=== PATIENT | male | born 1965 | race Caucasian/White ===

== ENCOUNTER 2022-11-25 13:18 | Inpatient (IN) | payer OTHER, MEDICAID ==
[~2022-11-25] VITALS: Ht 188 cm; Wt 79.4 kg
[2022-11-25 13:33] VITALS: BP_SYST 104
[2022-11-25 15:23] LABS: BASOPHILS % (AUTO) 0.4 % (0.0-2.0); EOSINOPHILS % (AUTO) 0.3 % (0.0-4.0); HEMOGLOBIN 7.6 g/dL (14.0-18.0); LYMPHOCYTES # (AUTO) 3.8 K/uL (1.0-5.5); LYMPHOCYTES % (AUTO) 37.2 % (20.5-51.5); MEAN CORPUSCULAR HEMOGLOBIN 27 pg (27-31); MEAN CORPUSCULAR HGB CONC 33 % (32-36); MEAN CORPUSCULAR VOLUME 82 fL (79.0-98.0); MONOCYTES # (AUTO) 0.9 K/uL (0.0-1.0); MONOCYTES % (AUTO) 9.1 % (1.7-9.3); NEUTROPHILS # (AUTO) 5.4 K/uL (1.8-7.7); PLATELET COUNT (AUTO) 391 K/uL (130-430); RED BLOOD CELL COUNT(AUTO) 2.81 MIL/uL (4.2-6.2); WHITE BLOOD COUNT (AUTO) 10.2 K/uL (4.8-10.8)
[2022-11-25 15:25] LABS: ANION GAP 6 (5-15); CALCIUM 9.2 mg/dL (8.4-11.0); CHLORIDE 105 mmol/L (98-107); GLUCOSE 102 mg/dL (70-99); UREA NITROGEN, BLOOD 37 mg/dL (8-21)
[2022-11-25 15:37] LABS: ALANINE AMINOTRANSFERASE 27 U/L (12-78); ALBUMIN 1.3 g/dL (3.4-4.8); ASPARTATE AMINOTRANSFERASE 37 U/L (10-37); TOTAL BILIRUBIN 0.3 mg/dL (0.0-1.0)
[2022-11-25 15:39] LABS: GFR AFRICAN AMERICAN 57 mL/min (>90)
[2022-11-25] MEDS ORDERED: NACL 0.9% 1,000 ML IV ONE (18:45)
[2022-11-25] MEDS ORDERED: ALBUMIN HUMAN 25% 100 ML IV ONE (20:15)
[2022-11-25 22:00] VITALS: BP_SYST 94
[2022-11-25] MEDS ORDERED: MAGNESIUM SULFATE 50 ML IV PRN (22:30)
[2022-11-25] MEDS ORDERED: MORPHINE 2 MG/ML INJ. SYRINGE IVP PRN ×2 (22:30)
[2022-11-25] MEDS ORDERED: POTASSIUM CHLORIDE 20 MEQ TAB.PRT.SR PO PRN (22:30)
[2022-11-25] MEDS ORDERED: ZOLPIDEM TARTRATE 5 MG TABLET PO PRN (22:30)
[2022-11-25] MEDS ORDERED: MUPIROCIN 2% TOPICAL OINTMENT 22 GM NS PRN (22:30)
[2022-11-25] MEDS ORDERED: DOCUSATE SODIUM 100 MG CAPSULE PO PRN (22:30)
[2022-11-25] MEDS ORDERED: ONDANSETRON HCL 4 MG/2 ML VIAL IVP PRN (22:30)
[2022-11-25] MEDS ORDERED: NALOXONE HCL 0.4 MG/ML AMP (NARCAN) IVP PRN ×2 (22:30)
[2022-11-25] MEDS: NACL 0.9% 1,000 ML IV SCH (22:59)
[2022-11-25 23:20] VITALS: BP_SYST 89
[2022-11-25 23:21] VITALS: BP_SYST 90
[2022-11-25 23:25] VITALS: BP_SYST 99
[2022-11-26] VITALS (15 sets, daily range): BP systolic 79–108
[2022-11-26] MEDS ORDERED: NACL 0.9% 1,000 ML IV ONE (00:30)
[2022-11-26 02:36] LABS: BASOPHILS % (AUTO) 0.4 % (0.0-2.0); EOSINOPHILS # (AUTO) 0.1 K/uL (0.0-0.4); EOSINOPHILS % (AUTO) 0.8 % (0.0-4.0); HEMATOCRIT 22.4 % (36-54); HEMOGLOBIN 7.2 g/dL (14.0-18.0); LYMPHOCYTES # (AUTO) 3.3 K/uL (1.0-5.5); LYMPHOCYTES % (AUTO) 39.7 % (20.5-51.5); MEAN CORPUSCULAR HEMOGLOBIN 27 pg (27-31); MEAN CORPUSCULAR HGB CONC 32 % (32-36); MEAN CORPUSCULAR VOLUME 83 fL (79.0-98.0); MONOCYTES # (AUTO) 0.8 K/uL (0.0-1.0); MONOCYTES % (AUTO) 9.6 % (1.7-9.3); NEUTROPHILS # (AUTO) 4.1 K/uL (1.8-7.7); NEUTROPHILS % (AUTO) 49.5 % (40.0-70.0); PLATELET COUNT (AUTO) 321 K/uL (130-430); RED BLOOD CELL COUNT(AUTO) 2.71 MIL/uL (4.2-6.2); RED CELL DISTRIBUTION WIDTH 16.3 % (9.0-15.0); WHITE BLOOD COUNT (AUTO) 8.2 K/uL (4.8-10.8)
[2022-11-26 06:06] LABS: BILIRUBIN,URINE NEGATIVE (NEGATIVE); BLOOD, URINE 3+ (NEGATIVE); COLOR,URINE YELLOW (YELLOW); GLUCOSE,URINE NEGATIVE (NEGATIVE); KETONES,URINE NEGATIVE (NEGATIVE); LEUKOCYTE ESTERASE ,URINE 3+ (NEGATIVE); NITRITE, URINE NEGATIVE (NEGATIVE); PROTEIN URINE 1+ (NEGATIVE); UROBILINOGEN,URINE 0.2 (0.2-1.0)
[2022-11-26 06:09] LABS: CLARITY/URINE CLOUDY (CLEAR)
[2022-11-26 06:22] LABS: BACTERIA,URINE MANY /HPF (None Seen); WBC,URINE >100 /HPF (0-3)
[2022-11-26 08:18] LABS: BASOPHILS % (AUTO) 0.5 % (0.0-2.0); EOSINOPHILS # (AUTO) 0.1 K/uL (0.0-0.4); EOSINOPHILS % (AUTO) 0.8 % (0.0-4.0); HEMATOCRIT 25.6 % (36-54); HEMOGLOBIN 8.1 g/dL (14.0-18.0); LYMPHOCYTES # (AUTO) 3.3 K/uL (1.0-5.5); LYMPHOCYTES % (AUTO) 37.6 % (20.5-51.5); MEAN CORPUSCULAR HEMOGLOBIN 26 pg (27-31); MEAN CORPUSCULAR HGB CONC 32 % (32-36); MEAN CORPUSCULAR VOLUME 83 fL (79.0-98.0); MONOCYTES # (AUTO) 0.9 K/uL (0.0-1.0); MONOCYTES % (AUTO) 10.8 % (1.7-9.3); NEUTROPHILS # (AUTO) 4.4 K/uL (1.8-7.7); NEUTROPHILS % (AUTO) 50.3 % (40.0-70.0); PLATELET COUNT (AUTO) 319 K/uL (130-430); WHITE BLOOD COUNT (AUTO) 8.7 K/uL (4.8-10.8)
[2022-11-26] MEDS: NACL 0.9% 1,000 ML IV SCH ×2 (08:30→18:17)
[2022-11-26 08:42] LABS: CALCIUM 8.7 mg/dL (8.4-11.0); CREATININE 1.28 mg/dL (0.55-1.30)
[2022-11-26] MEDS ORDERED: PANTOPRAZOLE SODIUM 40 MG/VIAL (PROTONIX) IVP ONE (09:15)
[2022-11-26] MEDS ORDERED: cefTRIAXone 1 GM in D5W 50 ML IV SCH (09:15)
[2022-11-26 09:28] LABS: TOTAL IRON BIND. CAPACITY 99 ug/dL (250-450)
[2022-11-26] MEDS: cefTRIAXone 1 GM in D5W 50 ML IV SCH (11:22)
[2022-11-26] MEDS ORDERED: ARIP10TA54 PO (13:21)
[2022-11-26] MEDS ORDERED: DARU800T PO (13:21)
[2022-11-26] MEDS ORDERED: DOXA1TAB2 PO (13:21)
[2022-11-26] MEDS ORDERED: DOCU-144 PO (13:21)
[2022-11-26] MEDS ORDERED: BACL10TA PO (13:21)
[2022-11-26] MEDS ORDERED: FOLI-134 (13:21)
[2022-11-26] MEDS ORDERED: ESCI10TA PO (13:21)
[2022-11-26] MEDS ORDERED: ACET325T53 PO (13:21)
[2022-11-26] MEDS ORDERED: SENN8.6T19 PO (13:21)
[2022-11-26] MEDS ORDERED: RITO100T PO (13:21)
[2022-11-26] MEDS ORDERED: MOM PO (13:21)
[2022-11-26] MEDS ORDERED: LEVE500T99 PO (13:21)
[2022-11-26] MEDS ORDERED: METO-442 PO (13:21)
[2022-11-26] MEDS ORDERED: FAMO20TA8 PO (13:21)
[2022-11-26] MEDS ORDERED: TOP25 PO (13:21)
[2022-11-26] MEDS ORDERED: ASCO500T20 PO (13:21)
[2022-11-26] MEDS ORDERED: MULT-1117 PO (13:21)
[2022-11-26] MEDS ORDERED: RALT400T PO (13:21)
[2022-11-26] MEDS ORDERED: DOXA4TAB2 PO (13:52)
[2022-11-26] MEDS ORDERED: MELO-89 PO (13:52)
[2022-11-26] MEDS ORDERED: BISA10SU61 RC (13:52)
[2022-11-26] MEDS: PANTOPRAZOLE SODIUM 40 MG/VIAL (PROTONIX) IVP SCH (20:59)
[2022-11-27 00:48] VITALS: BP_SYST 110
[2022-11-27] MEDS: NACL 0.9% 1,000 ML IV SCH ×2 (04:43→23:53)
[2022-11-27 07:11] LABS: BASOPHILS % (AUTO) 0.3 % (0.0-2.0); EOSINOPHILS # (AUTO) 0.1 K/uL (0.0-0.4); EOSINOPHILS % (AUTO) 0.8 % (0.0-4.0); HEMATOCRIT 26.9 % (36-54); HEMOGLOBIN 8.7 g/dL (14.0-18.0); LYMPHOCYTES # (AUTO) 2.7 K/uL (1.0-5.5); LYMPHOCYTES % (AUTO) 33.5 % (20.5-51.5); MEAN CORPUSCULAR HEMOGLOBIN 26 pg (27-31); MEAN CORPUSCULAR HGB CONC 32 % (32-36); MEAN CORPUSCULAR VOLUME 82 fL (79.0-98.0); MONOCYTES # (AUTO) 0.8 K/uL (0.0-1.0); MONOCYTES % (AUTO) 9.7 % (1.7-9.3); NEUTROPHILS # (AUTO) 4.4 K/uL (1.8-7.7); NEUTROPHILS % (AUTO) 55.7 % (40.0-70.0); PLATELET COUNT (AUTO) 321 K/uL (130-430); RED BLOOD CELL COUNT(AUTO) 3.28 MIL/uL (4.2-6.2); RED CELL DISTRIBUTION WIDTH 17.1 % (9.0-15.0); WHITE BLOOD COUNT (AUTO) 7.9 K/uL (4.8-10.8)
[2022-11-27 07:17] LABS: CALCIUM 8.6 mg/dL (8.4-11.0); CREATININE 1.16 mg/dL (0.55-1.30)
[2022-11-27 08:00] VITALS: BP_SYST 106
[2022-11-27] MEDS: PANTOPRAZOLE SODIUM 40 MG/VIAL (PROTONIX) IVP SCH ×2 (10:13→20:48)
[2022-11-27] MEDS: cefTRIAXone 1 GM in D5W 50 ML IV SCH (10:14)
[2022-11-27 17:07] VITALS: BP_SYST 107
[2022-11-27 20:00] VITALS: BP_SYST 96
[2022-11-28 00:46] VITALS: BP_SYST 110
[2022-11-28 06:58] LABS: BASOPHILS % (AUTO) 0.4 % (0.0-2.0); EOSINOPHILS # (AUTO) 0.1 K/uL (0.0-0.4); EOSINOPHILS % (AUTO) 0.8 % (0.0-4.0); HEMATOCRIT 25.4 % (36-54); HEMOGLOBIN 8.2 g/dL (14.0-18.0); LYMPHOCYTES # (AUTO) 2.9 K/uL (1.0-5.5); LYMPHOCYTES % (AUTO) 35.8 % (20.5-51.5); MEAN CORPUSCULAR HEMOGLOBIN 27 pg (27-31); MEAN CORPUSCULAR HGB CONC 32 % (32-36); MEAN CORPUSCULAR VOLUME 83 fL (79.0-98.0); MONOCYTES # (AUTO) 0.8 K/uL (0.0-1.0); MONOCYTES % (AUTO) 9.9 % (1.7-9.3); NEUTROPHILS # (AUTO) 4.2 K/uL (1.8-7.7); NEUTROPHILS % (AUTO) 53.1 % (40.0-70.0); PLATELET COUNT (AUTO) 314 K/uL (130-430); RED BLOOD CELL COUNT(AUTO) 3.08 MIL/uL (4.2-6.2); RED CELL DISTRIBUTION WIDTH 16.8 % (9.0-15.0)
[2022-11-28 07:06] LABS: FOLATE (FOLIC ACID) >20.0 ng/mL (>3.0)
[2022-11-28 07:06] LABS: FOLATE (FOLIC ACID) >20.0 ng/mL (>3.0)
[2022-11-28 07:16] LABS: CALCIUM 8.5 mg/dL (8.4-11.0); CREATININE 1.2 mg/dL (0.55-1.30)
[2022-11-28 08:06] LABS: FERRITIN 200 ng/mL (30-400)
[2022-11-28 08:06] LABS: FERRITIN 254 ng/mL (30-400)
[2022-11-28 08:11] VITALS: BP_SYST 121
[2022-11-28] MEDS: PANTOPRAZOLE SODIUM 40 MG/VIAL (PROTONIX) IVP SCH ×2 (11:46→20:11)
[2022-11-28] MEDS: cefTRIAXone 1 GM in D5W 50 ML IV SCH (11:47)
[2022-11-28] MEDS: NACL 0.9% 1,000 ML IV SCH ×2 (11:47→20:12)
[2022-11-28 12:00] VITALS: BP_SYST 119
[2022-11-28 16:29] VITALS: BP_SYST 120
[2022-11-28 20:00] VITALS: BP_SYST 114
[2022-11-29 00:24] VITALS: BP_SYST 118
[2022-11-29 06:21] LABS: BASOPHILS % (AUTO) 0.4 % (0.0-2.0); EOSINOPHILS # (AUTO) 0.1 K/uL (0.0-0.4); EOSINOPHILS % (AUTO) 0.7 % (0.0-4.0); HEMATOCRIT 25.6 % (36-54); HEMOGLOBIN 8.2 g/dL (14.0-18.0); LYMPHOCYTES # (AUTO) 3.6 K/uL (1.0-5.5); LYMPHOCYTES % (AUTO) 40.4 % (20.5-51.5); MEAN CORPUSCULAR HEMOGLOBIN 26 pg (27-31); MEAN CORPUSCULAR HGB CONC 32 % (32-36); MEAN CORPUSCULAR VOLUME 82 fL (79.0-98.0); MONOCYTES % (AUTO) 10.8 % (1.7-9.3); NEUTROPHILS # (AUTO) 4.3 K/uL (1.8-7.7); NEUTROPHILS % (AUTO) 47.7 % (40.0-70.0); PLATELET COUNT (AUTO) 283 K/uL (130-430); RED BLOOD CELL COUNT(AUTO) 3.12 MIL/uL (4.2-6.2); WHITE BLOOD COUNT (AUTO) 8.9 K/uL (4.8-10.8)
[2022-11-29 06:56] LABS: CALCIUM 8.5 mg/dL (8.4-11.0); CREATININE 1.22 mg/dL (0.55-1.30)
[2022-11-29] MEDS: NACL 0.9% 1,000 ML IV SCH ×2 (07:15→08:35)
[2022-11-29] MEDS: PANTOPRAZOLE SODIUM 40 MG/VIAL (PROTONIX) IVP SCH ×2 (08:29→21:33)
[2022-11-29 08:30] VITALS: BP_SYST 119
[2022-11-29 11:29] VITALS: BP_SYST 104
[2022-11-29] MEDS: cefTRIAXone 1 GM in D5W 50 ML IV SCH (11:54)
[2022-11-29 15:56] VITALS: BP_SYST 113
[2022-11-29 20:00] VITALS: BP_SYST 123
[2022-11-30] VITALS: BP_SYST 130
[2022-11-30 00:10] VITALS: BP_SYST 134
[2022-11-30] MEDS: NACL 0.9% 1,000 ML IV SCH ×3 (02:43→15:56)
[2022-11-30] MEDS ORDERED: DEXTROSE 50% JECT 50 ML DISP.SYRIN IVP SCH (03:15)
[2022-11-30] MEDS: D5NS 1,000 ML IV SCH ×2 (03:17→15:59)
[2022-11-30 07:07] LABS: BASOPHILS % (AUTO) 0.1 % (0.0-2.0); EOSINOPHILS % (AUTO) 0.1 % (0.0-4.0); HEMATOCRIT 26.2 % (36-54); HEMOGLOBIN 8.4 g/dL (14.0-18.0); LYMPHOCYTES # (AUTO) 2.8 K/uL (1.0-5.5); LYMPHOCYTES % (AUTO) 32.9 % (20.5-51.5); MEAN CORPUSCULAR HEMOGLOBIN 26 pg (27-31); MEAN CORPUSCULAR HGB CONC 32 % (32-36); MEAN CORPUSCULAR VOLUME 81 fL (79.0-98.0); MONOCYTES # (AUTO) 0.7 K/uL (0.0-1.0); MONOCYTES % (AUTO) 8.4 % (1.7-9.3); NEUTROPHILS % (AUTO) 58.5 % (40.0-70.0); PLATELET COUNT (AUTO) 235 K/uL (130-430); RED BLOOD CELL COUNT(AUTO) 3.22 MIL/uL (4.2-6.2); RED CELL DISTRIBUTION WIDTH 17.1 % (9.0-15.0); WHITE BLOOD COUNT (AUTO) 8.5 K/uL (4.8-10.8)
[2022-11-30] MEDS ORDERED: MEPERIDINE HCL/PF 25 MG/ML DISP.SYRIN ONE (07:32)
[2022-11-30] MEDS ORDERED: MIDAZOLAM HCL 5 MG/5 ML VIAL ONE (07:33)
[2022-11-30 07:53] LABS: INR 1.2 (0.80-1.20); PROTHROMBIN TIME 12.6 SECS (9.5-12.5)
[2022-11-30 08:06] LABS: CREATININE 1.29 mg/dL (0.55-1.30)
[2022-11-30 08:20] VITALS: BP_SYST 126
[2022-11-30] MEDS: PANTOPRAZOLE SODIUM 40 MG/VIAL (PROTONIX) IVP SCH ×2 (08:20→20:50)
[2022-11-30 11:31] VITALS: BP_SYST 132
[2022-11-30] MEDS: cefTRIAXone 1 GM in D5W 50 ML IV SCH (11:37)
[2022-11-30 15:27] VITALS: BP_SYST 128
[2022-11-30 20:00] VITALS: BP_SYST 148
[2022-11-30] MEDS: ACETAMINOPHEN 325 MG TABLET PO PRN (20:53)
[2022-12-01 00:34] VITALS: BP_SYST 126
[2022-12-01] MEDS: LORazepam 2 MG/ML VIAL IVP PRN ×2 (01:41→17:29)
[2022-12-01] MEDS: NACL 0.9% 1,000 ML IV SCH (01:43)
[2022-12-01] MEDS: D5NS 1,000 ML IV SCH ×2 (05:09→18:12)
[2022-12-01] MEDS: PANTOPRAZOLE SODIUM 40 MG/VIAL (PROTONIX) IVP SCH ×2 (08:56→20:53)
[2022-12-01 09:00] VITALS: BP_SYST 137
[2022-12-01] MEDS: cefTRIAXone 1 GM in D5W 50 ML IV SCH (11:24)
[2022-12-01 11:35] VITALS: BP_SYST 150
[2022-12-01 15:28] VITALS: BP_SYST 125
[2022-12-01] MEDS: ACETAMINOPHEN 325 MG TABLET PO PRN (16:32)
[2022-12-01] MEDS ORDERED: clonazePAM 0.5 MG TABLET PO ONE (19:45)
[2022-12-01 21:01] VITALS: BP_SYST 108
[2022-12-02] VITALS: BP_SYST 116
[2022-12-02] MEDS: ACETAMINOPHEN 325 MG TABLET PO PRN ×2 (01:09→14:47)
[2022-12-02] MEDS ORDERED: levETIRAcetam 500 MG TABLET PO ONE (07:45)
[2022-12-02 08:00] VITALS: BP_SYST 133
[2022-12-02] MEDS: BACLOFEN 10 MG TABLET PO SCH ×2 (08:46→22:22)
[2022-12-02] MEDS: METOPROLOL TARTRATE 50 MG TABLET PO SCH ×2 (08:46→22:21)
[2022-12-02] MEDS: TOPIRAMATE 25 MG TABLET(TOPAMAX) PO SCH ×2 (08:46→22:22)
[2022-12-02] MEDS: PANTOPRAZOLE SODIUM 40 MG/VIAL (PROTONIX) IVP SCH ×2 (08:46→22:15)
[2022-12-02] MEDS: D5NS 1,000 ML IV SCH ×2 (08:46→22:25)
[2022-12-02] MEDS: DARUNAVIR ETHANOLATE 800 MG PO SCH (09:00)
[2022-12-02] MEDS: RITONAVIR 100 MG TABLET PO SCH (09:00)
[2022-12-02 11:34] VITALS: BP_SYST 128
[2022-12-02] MEDS: PIPERACILLIN/TAZO 3.375/DEX-IS 50 ML IV SCH ×2 (12:00→16:59)
[2022-12-02] MEDS: FLUCONAZOLE 100 mg/ NS 50 ML IV SCH (12:00)
[2022-12-02] MEDS ORDERED: DARUNAVIR ETHANOLATE 800 MG PO ONE (13:00)
[2022-12-02] MEDS ORDERED: ISENTRESS 400 MG PO ONE (13:00)
[2022-12-02] MEDS ORDERED: RITONAVIR 100 MG TABLET PO ONE (13:00)
[2022-12-02 15:39] VITALS: BP_SYST 114
[2022-12-02 16:28] LABS: BASOPHILS % (AUTO) 0.4 % (0.0-2.0); HEMATOCRIT 23.9 % (36-54); HEMOGLOBIN 7.8 g/dL (14.0-18.0); LYMPHOCYTES # (AUTO) 3.5 K/uL (1.0-5.5); MEAN CORPUSCULAR HEMOGLOBIN 27 pg (27-31); MEAN CORPUSCULAR HGB CONC 33 % (32-36); MEAN CORPUSCULAR VOLUME 81 fL (79.0-98.0); MONOCYTES % (AUTO) 10.1 % (1.7-9.3); NEUTROPHILS % (AUTO) 52.5 % (40.0-70.0); PLATELET COUNT (AUTO) 165 K/uL (130-430); RED BLOOD CELL COUNT(AUTO) 2.96 MIL/uL (4.2-6.2); RED CELL DISTRIBUTION WIDTH 17.5 % (9.0-15.0); WHITE BLOOD COUNT (AUTO) 9.5 K/uL (4.8-10.8)
[2022-12-02] MEDS: ISENTRESS 400 MG PO SCH (21:00)
[2022-12-02] MEDS ORDERED: ESCITALOPRAM OXALATE 10 MG TABLET PO SCH (21:00)
[2022-12-02] MEDS ORDERED: CITALOPRAM HYDROBROMIDE 20 MG TABLET PO SCH (21:00)
[2022-12-02] MEDS: DOXAZOSIN MESYLATE 2 MG TABLET PO SCH (22:21)
[2022-12-02] MEDS: levETIRAcetam 500 MG TABLET PO SCH (22:22)
[2022-12-03] VITALS: BP_SYST 100
[2022-12-03] MEDS: PIPERACILLIN/TAZO 3.375/DEX-IS 50 ML IV SCH ×5 (00:49→23:20)
[2022-12-03 04:00] VITALS: BP_SYST 105
[2022-12-03] MEDS: METOPROLOL TARTRATE 50 MG TABLET PO SCH (08:01)
[2022-12-03] MEDS: PANTOPRAZOLE SODIUM 40 MG/VIAL (PROTONIX) IVP SCH ×2 (08:31→22:13)
[2022-12-03] MEDS: ISENTRESS 400 MG PO SCH ×2 (09:00→21:00)
[2022-12-03] MEDS: RITONAVIR 100 MG TABLET PO SCH (09:00)
[2022-12-03] MEDS: TOPIRAMATE 25 MG TABLET(TOPAMAX) PO SCH ×2 (09:00→21:00)
[2022-12-03] MEDS: levETIRAcetam 500 MG TABLET PO SCH ×2 (09:00→21:00)
[2022-12-03] MEDS: DARUNAVIR ETHANOLATE 800 MG PO SCH (09:00)
[2022-12-03] MEDS: D5NS 1,000 ML IV SCH (10:59)
[2022-12-03 11:25] VITALS: BP_SYST 100
[2022-12-03 12:25] LABS: BASOPHILS % (AUTO) 0.1 % (0.0-2.0); HEMATOCRIT 25.1 % (36-54); LYMPHOCYTES # (AUTO) 2.8 K/uL (1.0-5.5); LYMPHOCYTES % (AUTO) 26.2 % (20.5-51.5); MEAN CORPUSCULAR HEMOGLOBIN 26 pg (27-31); MEAN CORPUSCULAR HGB CONC 32 % (32-36); MEAN CORPUSCULAR VOLUME 82 fL (79.0-98.0); MONOCYTES # (AUTO) 0.9 K/uL (0.0-1.0); MONOCYTES % (AUTO) 8.1 % (1.7-9.3); NEUTROPHILS % (AUTO) 65.6 % (40.0-70.0); PLATELET COUNT (AUTO) 177 K/uL (130-430); RED BLOOD CELL COUNT(AUTO) 3.06 MIL/uL (4.2-6.2); RED CELL DISTRIBUTION WIDTH 17.8 % (9.0-15.0); WHITE BLOOD COUNT (AUTO) 10.7 K/uL (4.8-10.8)
[2022-12-03 12:36] LABS: CALCIUM 8.1 mg/dL (8.4-11.0); CREATININE 1.85 mg/dL (0.55-1.30)
[2022-12-03] MEDS: FLUCONAZOLE 100 mg/ NS 50 ML IV SCH (12:59)
[2022-12-03 15:19] VITALS: BP_SYST 101
[2022-12-03 19:00] VITALS: BP_SYST 136
[2022-12-03] MEDS: DOXAZOSIN MESYLATE 2 MG TABLET PO SCH (21:00)
[2022-12-03] MEDS: LORazepam 2 MG/ML VIAL IVP PRN (23:19)
[2022-12-04] MEDS: D5NS 1,000 ML IV SCH ×2 (00:35→14:44)
[2022-12-04 00:39] VITALS: BP_SYST 122
[2022-12-04 04:00] VITALS: BP_SYST 130
[2022-12-04] MEDS: PIPERACILLIN/TAZO 3.375/DEX-IS 50 ML IV SCH (06:36)
[2022-12-04] MEDS: levETIRAcetam 500 MG TABLET PO SCH ×2 (08:54→20:41)
[2022-12-04] MEDS: PANTOPRAZOLE SODIUM 40 MG/VIAL (PROTONIX) IVP SCH ×2 (08:58→20:42)
[2022-12-04] MEDS: RITONAVIR 100 MG TABLET PO SCH (08:58)
[2022-12-04] MEDS: ISENTRESS 400 MG PO SCH ×2 (08:58→20:42)
[2022-12-04] MEDS: TOPIRAMATE 25 MG TABLET(TOPAMAX) PO SCH ×2 (08:58→20:41)
[2022-12-04] MEDS: BALSAM PERU/CASTOR OIL 56.7 GM OINT...G. TP SCH (08:59)
[2022-12-04] MEDS: DARUNAVIR ETHANOLATE 800 MG PO SCH (08:59)
[2022-12-04 11:37] VITALS: BP_SYST 90
[2022-12-04] MEDS: FLUCONAZOLE 100 mg/ NS 50 ML IV SCH (11:55)
[2022-12-04] MEDS: metroNIDAZOLE 500 mg/NS 100 ML IV SCH ×2 (12:00→20:42)
[2022-12-04 15:33] VITALS: BP_SYST 100
[2022-12-04 20:00] VITALS: BP_SYST 118
[2022-12-04] MEDS: DOXAZOSIN MESYLATE 2 MG TABLET PO SCH (20:42)
[2022-12-04 23:55] VITALS: BP_SYST 127
[2022-12-05 00:09] VITALS: BP_SYST 127
[2022-12-05] MEDS: LORazepam 2 MG/ML VIAL IVP PRN ×2 (01:28→04:17)
[2022-12-05] MEDS: D5NS 1,000 ML IV SCH ×2 (03:19→18:33)
[2022-12-05] MEDS: metroNIDAZOLE 500 mg/NS 100 ML IV SCH ×3 (04:14→20:30)
[2022-12-05] MEDS: DARUNAVIR ETHANOLATE 800 MG PO SCH (09:00)
[2022-12-05] MEDS: levETIRAcetam 500 MG TABLET PO SCH (09:00)
[2022-12-05] MEDS: TOPIRAMATE 25 MG TABLET(TOPAMAX) PO SCH ×2 (09:00→20:32)
[2022-12-05] MEDS: RITONAVIR 100 MG TABLET PO SCH (09:00)
[2022-12-05] MEDS: ISENTRESS 400 MG PO SCH ×2 (09:00→20:32)
[2022-12-05] MEDS: BALSAM PERU/CASTOR OIL 56.7 GM OINT...G. TP SCH (09:00)
[2022-12-05 09:23] VITALS: BP_SYST 138
[2022-12-05] MEDS: PANTOPRAZOLE SODIUM 40 MG/VIAL (PROTONIX) IVP SCH ×2 (10:19→20:31)
[2022-12-05] MEDS ORDERED: levETIRAcetam 500 MG in NS 100 ML IV ONE (11:30)
[2022-12-05 11:52] VITALS: BP_SYST 123
[2022-12-05] MEDS: FLUCONAZOLE 100 mg/ NS 50 ML IV SCH (13:08)
[2022-12-05 17:10] VITALS: BP_SYST 120
[2022-12-05 20:00] VITALS: BP_SYST 133
[2022-12-05] MEDS: DOXAZOSIN MESYLATE 2 MG TABLET PO SCH (20:32)
[2022-12-05] MEDS: levETIRAcetam 500 MG in NS 100 ML IV SCH (21:27)
[2022-12-06 00:16] VITALS: BP_SYST 120
[2022-12-06] MEDS: metroNIDAZOLE 500 mg/NS 100 ML IV SCH ×2 (03:18→12:00)
[2022-12-06] MEDS: D5NS 1,000 ML IV SCH (05:55)
[2022-12-06] MEDS: TOPIRAMATE 25 MG TABLET(TOPAMAX) PO SCH (09:00)
[2022-12-06] MEDS: ISENTRESS 400 MG PO SCH (09:00)
[2022-12-06] MEDS: BALSAM PERU/CASTOR OIL 56.7 GM OINT...G. TP SCH (09:00)
[2022-12-06] MEDS: RITONAVIR 100 MG TABLET PO SCH (09:00)
[2022-12-06] MEDS: DARUNAVIR ETHANOLATE 800 MG PO SCH (09:00)
[2022-12-06] MEDS: PANTOPRAZOLE SODIUM 40 MG/VIAL (PROTONIX) IVP SCH (09:24)
[2022-12-06] MEDS: levETIRAcetam 500 MG in NS 100 ML IV SCH (09:24)
[2022-12-06 11:29] VITALS: BP_SYST 135
[2022-12-06] MEDS: LORazepam 2 MG/ML VIAL IVP PRN (11:58)
[2022-12-06] MEDS: FLUCONAZOLE 100 mg/ NS 50 ML IV SCH (12:00)
[2022-12-06 15:24] VITALS: BP_SYST 136
[2022-12-06 20:00] VITALS: BP_SYST 123
== END 2022-12-06 21:05 | DRG 977 ==
LOC: SED 13:18 → SMU 20:41 → STU 11-26 02:58 → SMU 11-28 16:00
PROVIDERS: ADMIT General Practice; ATTEND General Practice
PROC: 30233N1 Transfusion of Nonautologous Red Blood Cells into Peripheral Vein, Percutaneous Approach (ICD-10-PCS; 2022-11-25)
PROC: 0DB98ZX Excision of Duodenum, Via Natural or Artificial Opening Endoscopic, Diagnostic (ICD-10-PCS; 2022-11-30)
PROC: 0DB78ZX Excision of Stomach, Pylorus, Via Natural or Artificial Opening Endoscopic, Diagnostic (ICD-10-PCS; 2022-11-30)
PROC: 0DB58ZX Excision of Esophagus, Via Natural or Artificial Opening Endoscopic, Diagnostic (ICD-10-PCS; 2022-11-30)
PROC: 4A00X4Z Measurement of Central Nervous Electrical Activity, External Approach (ICD-10-PCS; principal; 2022-12-02)
DX: D50.9 Iron deficiency anemia, unspecified (principal); B20 Human immunodeficiency virus [HIV] disease; N17.0 Acute kidney failure with tubular necrosis; E43 Unspecified severe protein-calorie malnutrition; G93.41 Metabolic encephalopathy; N39.0 Urinary tract infection, site not specified; G82.20 Paraplegia, unspecified; K29.70 Gastritis, unspecified, without bleeding; K44.9 Diaphragmatic hernia without obstruction or gangrene; K21.00 Gastro-esophageal reflux disease with esophagitis, without bleeding; L89.159 Pressure ulcer of sacral region, unspecified stage; G40.909 Epilepsy, unspecified, not intractable, without status epilepticus; I73.9 Peripheral vascular disease, unspecified; F32.A Depression, unspecified; B96.4 Proteus (mirabilis) (morganii) as the cause of diseases classified elsewhere; I10 Essential (primary) hypertension; Z20.822 Contact with and (suspected) exposure to COVID-19; Z88.2 Allergy status to sulfonamides; Z88.8 Allergy status to other drugs, medicaments and biological substances; Z68.22 Body mass index [BMI] 22.0-22.9, adult
CPT/HCPCS: 36415; 43239; 70450-TC; 71045; 76376; 76770; 80048; 80053; 81000; 82272; 82607; 82728; 82746; 83037; 83540; 83550; 83735; 84484; 85025; 85610-TC; 85730-TC; 86886; 86900; 86901; 86920; 87040; 87081; 87086; 88305; 88312; 88313; 92610-GN; 93005; 95816; 96360; 96361; 99285; C9113; G0378; J0696; J1450; J1953; J2060; J2175; J2250; J2270; J2405; J2543; J3490; J7060; P9021; P9046